=== PATIENT | female | born 1985 | race Caucasian/White ===

== ENCOUNTER 2018-10-18 07:38 | Inpatient (IN) ==
[2018-10-18] MEDS: RINGER'S SOLUTION,LACTATED 1,000 ML IV PRN ×2 (10:25→14:49)
[2018-10-18] MEDS ORDERED: ONDANSETRON HCL/PF 2 MG/ML VIAL IV PRN (10:31)
[2018-10-18] MEDS ORDERED: BUPIVACAINE HCL/0.9 % NACL/PF 250 ML EP PRN (10:31)
[2018-10-18] MEDS ORDERED: NALOXONE HCL 1 MG/1 ML SYRG IV PRN (10:31)
--- NOTE | 2018-10-18 10:35 | ANES ---
Anesthesia Pre Procedure Eval Vitals/Labs: Last Vital Signs Temp 36.9 C 10/18/18 08:00 Pulse 99 10/18/18 08:00 Resp 18 10/18/18 08:00 BP 131/81 10/18/18 08:00 Pulse Ox 100 10/18/18 08:00 HOME MEDICATIONS vitamin,calcium,jaucpbny-gusm-[id number] acid tablet 1 tab PO DAILY 03/06/18 [Last Taken 10/17/18 16:55] Allergies/Adverse Reactions: Allergies Allergy/AdvReac Type Severity Reaction Status Date / Time No Known Allergies Allergy Verified 10/17/18 13:33 - Planned Procedure Planned Procedure: active labor Medication List Reviewed:: Yes Allergies Verified: Yes Medical History (Last Reviewed 10/18/18 @ 10:33 by Deuce Munguia CRNA) Allergy to Fire Ants Onset Date: ~1985 Anaphylactic Reaction Depression Onset Date: Unknown Duodenitis Onset Date: Unknown Gallbladder disorder Onset Date: Unknown Gastritis Onset Date: Unknown IBS (irritable bowel syndrome) Onset Date: Unknown Ovarian cyst Onset Date: Unknown Umbilical hernia Onset Date: Unknown Wears glasses Surgical History (Last Reviewed 10/18/18 @ 10:33 by Deuce Munguia CRNA) History of cholecystectomy Onset Date: 07/06/17 [facility] History of colonoscopy Onset Date: ~2016 [facility] Family History (Last Reviewed 10/18/18 @ 10:33 by Deuce Munguia CRNA) Brother Thyroid disorder Father Diabetes Hypertension Grandfather Dementia Grandfather Hypertension Prostate cancer Grandmother History of kidney cancer Hypertension Diabetes Grandmother Hypertension Diabetes Myocardial infarction Mother Thyroid disorder Melanoma Hypertension Uterine prolapse Ovarian cancer Questionable??? - Family Anesthesia History Family History:: no untoward family reactions to anesthesia, no familial bleeding tendencies, no family history of clotting disorders, no family history of premature - Airway/Neck/Teeth Within Normal Limits:: Yes Teeth Condition: intact Neck Exam: full range of motion Mallampatti Score: 2 Thyromental (T-M) distance: > 6 cm Mandibulo Hyoid distance: > 3 cm - Respiratory Respiratory Physical: lungs clear Smoking Status: Never smoker Sleep Apnea currently treated: No Sleep Apnea by current assessment: No - Cardiovascular Tolerate Activity: Good Heart Sounds: S1 & S2, Regular - Anesthesia Assessment and Plan ASA Class: PS, II, E Anesthesia Type Plan: Epidural - CSE for labor analgesia
[2018-10-18] MEDS ORDERED: fentaNYL CITRATE/PF 50 MCG/ML AMPUL IT SCH (10:45)
--- NOTE | 2018-10-18 10:59 | ANES ---
Post Anesthesia Discharge - Transfer of Care Transfer of Care handoff given to nurse: Yes - Discharge from PACU Discharge from PACU when meets criteria: Yes - Comfortable after CSE
--- NOTE | 2018-10-18 11:02 | ANES ---
Anesthesia Procedure Note Procedure Note: ANESTHESIA PROCEDURE NOTE Date of Procedure: 10/18/2018 Time of procedure: 10:40 AM. Performed by: Deuce Munguia CRNA, MSN Manager Plumbing: Radha Lovett RN. Preprocedure diagnosis: Active labor, labor pain. Post procedure diagnosis: Same. Procedure:Epidural for labor analgesia L34. Indications: Labor pain. Findings: See below. Details of the procedure: The patient was placed on the side of the bed in sitting positionand prepped with DuraPrep then draped in a sterile fashion. Lidocaine 1% was infiltrated to the skin and subcutaneous tissues at the level of the L34 interspace. An 18-gauge Touhy needle was used to approach the epidural space with loss of resistance technique. Once loss of resistance was achieved a 27-gauge spinal needle was passed through the epidural needle and CSF was contacted. After CSF returned, 20 mcg of fentanyl was injected in the spinal needle was removed the epidural catheter was then threaded approximately 4 cm in the epidural needle was removed. The catheter was taped in place and after careful aspiration 3 mL of 1.5% lidocaine with 1-200,000 epinephrine was injected without change in maternal heart rate or sensorium. . EBL: Minimal. Fluids: N/A. Specimen: N/A. Post procedure condition: The patient tolerated the procedure well with good relief. No complications were noted. Thank you for this consultation. Deuce Munguia CRNA, MSN
--- NOTE | 2018-10-18 12:50 | ANES ---
Post Anesthesia Assessment - Vital Signs Vitals: Last Vital Signs Temp 36.9 C 10/18/18 08:00 Pulse 99 10/18/18 08:00 Resp 18 10/18/18 08:00 BP 131/81 10/18/18 08:00 Pulse Ox 100 10/18/18 08:00 Airway Patency: Maintainable - Mental Status Level Of Consciousness: Awake, Alert, Appropriate - Pain Level Pain Score: 0 - N/V Assessment Nausea/Vomiting Presence: None Dehydration:: No
[2018-10-18] MEDS ORDERED: OXYTOCIN/DEXTROSE 5%-WATER 30 UNITS/500 ML BAG IV ONE ×2 (13:04→15:12)
--- NOTE | 2018-10-18 14:56 | HP ---
Chief Complaint - Chief Complaint Date of Service: 10/18/18 Time of Service: 14:56 Chief Complaint: contractions History of Present Illness: 33 yo at 38 3/7 weeks presents to L&D complaining of contractions of increasing intensity and frequency. This without complications. Rh positive Rubella immune GBS negative Medical History (Last Reviewed 10/18/18 @ 15:52 by Param Connolly DO) Allergy to Fire Ants Onset Date: ~1985 Anaphylactic Reaction Depression Onset Date: Unknown Duodenitis Onset Date: Unknown Gallbladder disorder Onset Date: Unknown Gastritis Onset Date: Unknown IBS (irritable bowel syndrome) Onset Date: Unknown Ovarian cyst Onset Date: Unknown Umbilical hernia Onset Date: Unknown Wears glasses Surgical History: Surgical History (Last Reviewed 10/18/18 @ 15:52 by Param Connolly DO) History of cholecystectomy Onset Date: 07/06/17 [facility] History of colonoscopy Onset Date: ~2016 [facility] Family History: Family History (Last Reviewed 10/18/18 @ 15:52 by Param Connolly DO) Brother Thyroid disorder Father Diabetes Hypertension Grandfather Dementia Grandfather Hypertension Prostate cancer Grandmother History of kidney cancer Hypertension Diabetes Grandmother Hypertension Diabetes Myocardial infarction Mother Thyroid disorder Melanoma Hypertension Uterine prolapse Ovarian cancer Questionable??? Social History: Preferred Language [place]uneian Smoking Status Never smoker (Last Updated 10/17/18 @ 14:00 by Param Connolly DO) No Social History Section defined Review Of Systems (GEN) - Review of Systems Generalized/Overall Review: Present: No Symptoms Reported EENTM: Present: No Symptoms Reported Respiratory: Present: No Symptoms Reported Cardiac: Present: No Symptoms Reported Abdominal: Present: No Symptoms Reported Genitourinary: Present: No Symptoms Reported Musculoskeletal: Present: No Symptoms Reported Neurological: Present: No Symptoms Reported Skin: Present: No Symptoms Reported Endocrine: Present: No Symptoms Reported Allergies/Adverse Reactions: Allergies Allergy/AdvReac Type Severity Reaction Status Date / Time No Known Allergies Allergy Verified 10/17/18 13:33 Home Medications: HOME MEDICATIONS vitamin,calcium,eogloxwf-emwm-rnmqx acid tablet 1 tab PO DAILY 03/06/18 [Last Taken 10/17/18 16:55] Exam - Exam Vital Signs: Vital Signs - Last Taken Temp 36.9 C 10/18/18 08:00 Pulse 99 10/18/18 08:00 Resp 18 10/18/18 08:00 BP 131/81 10/18/18 08:00 Pulse Ox 100 10/18/18 08:00 Constitutional: Present: Alert, Oriented x3, Cooperative ENT Exam: Present: hearing grossly normal Breasts: Present: Exam deferred Respiratory: Present: lungs clear, no respiratory distress Cardiovascular/Chest: Present: regular rate, rhythm, no edema Abdomen: Present: soft, no rebound tenderness, other - gravid /Rectal: Present: Other - --2 Extremity: Present: no pedal edema, no calf tenderness Skin Exam: Present: normal color, warm/dry, no cyanosis Neurologic: Present: alert, normal mood/affect, oriented x 3 Appearance: Present: appropriate appearance, appropriate insight Eye contact: Present: cooperative, good eye contact Thoughts: Present: normal thought pattern Assessment/Plan - Assessment/Plan (1) Labor established Problem: Acute
[2018-10-18] MEDS ORDERED: HYDROCORTISONE 30 APPL TUBE TP PRN (15:12)
[2018-10-18] MEDS ORDERED: BENZOCAINE/MENTHOL 81 SPRAY CAN TP PRN (15:12)
[2018-10-18] MEDS ORDERED: GLYCERIN/WITCH HAZEL LEAF 40 APPL BOX TP PRN (15:12)
[2018-10-18] MEDS ORDERED: SENNOSIDES 8.6 MG TABLET PO PRN (15:12)
[2018-10-18] MEDS ORDERED: BISACODYL 10 MG SUPP.RECT RC PRN (15:12)
[2018-10-18] MEDS ORDERED: oxyCODONE HCL/ACETAMINOPHEN 1 TAB TABLET PO PRN ×2 (15:12)
--- NOTE | 2018-10-18 15:15 | OR ---
Operative Report - Dictated Report Narrative: Spontaneous vaginal delivery of the vigorously crying viable male born at 1440 on 10/18/2019 with Apgars 9 and 9, weighing 3339 g in JULIANA position with loose nuchal cord 1. Cord clamping delayed approximately 1 minute Placenta delivered complete, intact, with three vessel cord Estimated blood loss: less than 50 ml Anesthesia: epidural Lacerations: None
--- NOTE | 2018-10-18 15:28 | PN ---
Progess Note - Interim Date: 10/18/18 Time: 15:27 History for MU Definition: * The number of deliveries resulting in a live the patient experienced prior to current hospitalization * The previous delivery of live twins or any live multiple gestation is considered one live event. *If primagravida or nulliparous is documented select zero for the number of previous live births. Live Events: 2
[2018-10-18 15:53] LABS: Cocaine Ur Negative (NEGATIVE); Urine Barbiturate Negative (NEGATIVE); Urine Benzodiazepines Negative (NEGATIVE); Urine Opiates Negative (NEGATIVE); Urine PCP Negative (NEGATIVE); Urine THC Negative (NEGATIVE)
[2018-10-18] MEDS: IBUPROFEN 800 MG TABLET PO PRN (17:43)
[2018-10-18] MEDS: DOCUSATE SODIUM 100 MG CAPSULE PO SCH (20:15)
[2018-10-19] MEDS: IBUPROFEN 800 MG TABLET PO PRN ×2 (04:26→21:13)
--- NOTE | 2018-10-19 10:19 | PN ---
Subjective - Date and Time Seen Date: 10/19/18 Time: 10: Objective - Vitals Vitals: Last Vital Signs Temp 37.0 C 10/19/18 07:45 Pulse 93 10/19/18 07:45 Resp 20 10/19/18 07:45 BP 113/64 10/19/18 07:45 Pulse Ox 97 10/19/18 00:51 Patient denies complaints. Lochia wnl Abdomen - soft, nontender Uterus - firm, at umbilicus - 1 No calf tenderness Impression: day #1 - s/p spontaneous vaginal delivery. Plan: Continue routine care Assessment/Plan - Problems/Diagnosis (1) Labor established Problem: Acute
[2018-10-19] MEDS: DOCUSATE SODIUM 100 MG CAPSULE PO SCH ×2 (10:44→20:56)
[2018-10-20 07:50] VITALS: BP 126/73
--- NOTE | 2018-10-20 08:42 | PN ---
Subjective - Date and Time Seen Date: 10/20/18 Time: 08:41 Objective - Vitals Vitals: Last Vital Signs Temp 36.6 C 10/20/18 07:35 Pulse 72 10/20/18 07:35 Resp 20 10/20/18 07:35 BP 126/73 10/20/18 07:35 Pulse Ox 98 10/20/18 07:35 Patient denies complaints. Breast-feeding Lochia wnl Abdomen - soft, nontender Uterus - firm, at umbilicus - 2 No calf tenderness Impression: day #2 - s/p spontaneous vaginal delivery. Plan: Routine discharge instructions Assessment/Plan - Problems/Diagnosis (1) Labor established Problem: Acute
[2018-10-20] MEDS: DOCUSATE SODIUM 100 MG CAPSULE PO SCH (09:47)
== END 2018-10-20 14:00 | disposition home or self-care (01) | DRG 806 ==
LOC: OBCLINIC 07:38 → OB 10:07
PROVIDERS: ADMIT Obstetrics & Gynecology; ATTEND Obstetrics & Gynecology
CPT/HCPCS: 59025; 80307